=== PATIENT | female | born 1995 | race Caucasian/White ===

== ENCOUNTER 2025-06-17 12:29 | Emergency (ER) | payer OTHER ==
[2025-06-17 12:42] VITALS: BP 107/70; PULSE 100; RESP 18; TEMP 98.8; BMI 24.9
[2025-06-17] MEDS ORDERED: MAG HYDROX/AL HYDROX/SIMETH 30 ML UNIT-DOSE CUP ONE (14:35)
[2025-06-17] MEDS ORDERED: FAMOTIDINE 20 MG/50 ML IVPB 20 MG/50 ML MG IVPB ONE (14:35)
[2025-06-17] MEDS ORDERED: ACETAMINOPHEN 325 MG TABLET (FP) ONE (14:35)
[2025-06-17] MEDS: ACETAMINOPHEN 325 MG TABLET (FP) PO ONE (14:48)
[2025-06-17] MEDS: FAMOTIDINE 20 MG/50 ML IVPB 20 MG/50 ML MG IVPB ONE (14:48)
[2025-06-17] MEDS: MAG HYDROX/AL HYDROX/SIMETH 30 ML UNIT-DOSE CUP PO ONE (14:48)
[2025-06-17 14:55] LABS: ABSOLUTE IMMATURE GRANULOCYTES 0.05 x10^3/uL (0.0-0.031); BASOPHILS # 0.05 x10^3/uL (0.01-0.08); EOSINOPHIL % 0.8 % (0.7-5.8); EOSINOPHILS # 0.12 x10^3/uL (0.04-0.36); MCHC 32.6 g/dl (32.2-35.5); MEAN CELL VOLUME 91.1 fl (79.4-94.8); MEAN PLT VOLUME 10.1 fl (9.4-12.3); MONOCYTE # 1.09 x10^3/uL (0.24-0.86); MONOCYTE % 7.3 % (4.7-12.5); RDW 14.4 % (12.1-16.5)
[2025-06-17 15:07] LABS: INR 0.95 (0.83-1.09); PROTHROMBIN TIME (PATIENT) 10.5 SEC (9.7-13.0)
[2025-06-17 15:08] LABS: EPITHELIAL CELLS 1+ /hpf
[2025-06-17 15:10] LABS: ACTIVATED PTT 28.0 SECONDS (25.2-36.5)
[2025-06-17 15:32] LABS: ALK PHOS 59 U/L (45-117); CO2 26 mmol/L (21-32); CREATININE 0.5 mg/dl (0.6-1.3); GLUCOSE,RANDOM 84 mg/dl (74-106); SGOT/AST 23 U/L (15-37); SGPT/ALT 34 U/L (7-52); TOT PROT 6.5 g/dl (6.4-8.2)
[2025-06-17 18:31] LABS: N-TERMINAL BNP 50.0 pg/mL (0-299.9)
== END 2025-06-17 18:08 | disposition home or self-care (01) ==
LOC: FER 12:29
PROC: 3E033GC Introduction of Other Therapeutic Substance into Peripheral Vein, Percutaneous Approach (ICD-10-PCS; principal; 2025-06-17)
DX: R07.2 Precordial pain (principal)
CPT/HCPCS: 36415; 80053; 81003; 81015; 83690; 83880; 84484; 85025; 85610; 85730; 87086; 93005; 99284-25